=== PATIENT | male | born 1955 | race Caucasian/White ===

== ENCOUNTER → 2020-08-23 12:07 | Outpatient (BNVA) | payer MEDICAID, SELFPAY | PROVIDERS: Family Provider Nurse Practitioner; PCP Nurse Practitioner Family; Visit Provider Nurse Practitioner Family | DX: E78.5 Hyperlipidemia, unspecified (principal); I10 Essential (primary) hypertension; R14.0 Abdominal distension (gaseous); G47.00 Insomnia, unspecified; N52.9 Male erectile dysfunction, unspecified | CPT/HCPCS: 80053; 80061; 85025 ==

== ENCOUNTER 2020-09-01 07:49 | Outpatient (CLI) | payer MEDICAID, SELFPAY ==
--- NOTE | 2020-09-01 08:00 | US_ITS ---
WS: [id number] ULTRASOUND ABDOMEN CLINICAL INFORMATION: R14.0 - Abdominal distension (gaseous) COMPARISON: None. FINDINGS: Liver Size: Enlarged Craniocaudal length: 23.4 cm. Echogenicity: Coarse Surface nodularity: Present Mass (size and location): Numerous large echogenic and heterogeneous hepatic lesions are nonspecific in appearance. Recommend further evaluation with contrast-enhanced CT abdomen pelvis with liver ananth col. Bile ducts Intrahepatic ducts: Normal. Common bile duct diameter: 0.3 cm. Gallbladder Mild gallbladder wall thickening due to hepatic disease Gallstones: None. Gallbladder sludge: Present Gallbladder wall thickening: Mild Pericholecystic fluid: None. Sonographic Figueroa sign: Absent. Pancreas Normal as visualized. Spleen Splenomegaly: Mild Craniocaudal length: 12.7 cm. Right kidney: Right renal cyst inferior pole measuring 2.2 x 1.6 cm Hydronephrosis: None. Size: cm x 5.0 cm x 5.3 cm Left kidney: Normal. Hydronephrosis: None. Size: 11.2 cm x 4.7 cm x 5.1 cm. Abdominal aorta and IVC Visualized portions are normal. Ascites: Mild/moderate US/US abdomen complete* [id number] IMPRESSION: 1. Marked hepatomegaly with multiple heterogeneous and echogenic hepatic lesio ns nonspecific and considerations include benign and malignant lesions. Largest hepatic lesions measure 6 to 7 cm. Recommend further evaluation with contrast- enhanced CT abdomen pelvis with liver protocol. 2. Coarse hepatic echogenicity with perihepatic ascites. 3. Splenomegaly measuring 12.6 x 6.3 CM. 4. No hydronephrosis in either kidney. 5. Mild to moderate abdominal ascites. 6. Mild gallbladder wall thickening consistent with hepatic disease. Small desmond unt of sludge in the gallbladder. Common bile duct not well seen.
== END 2020-09-01 07:50 | disposition home or self-care (01) ==
LOC: US 07:51
PROVIDERS: PCP Nurse Practitioner Family; Visit Provider Nurse Practitioner Family
DX: R14.0 Abdominal distension (gaseous) (principal); R16.0 Hepatomegaly, not elsewhere classified; R16.1 Splenomegaly, not elsewhere classified; K76.9 Liver disease, unspecified; R18.8 Other ascites
CPT/HCPCS: 76700

== ENCOUNTER 2020-09-05 13:38 | Outpatient (CLI) | payer MEDICAID, SELFPAY ==
--- NOTE | 2020-09-05 13:30 | CT_ITS ---
WS: [id number] Exam: CT abdomen pelvis w con* [id number] Date/Time of Exam: 09/05/2020 1:42 PM Reason For Exam: K76.9 - Liver disease, unspecified DLP: 2065.[address] scans at [facility] use at least one of these dose optimization techniques: automat ed exposure control; mA and/or kV adjustment per patient size (includes targeted exams where dose is matched to clinical indication); or iterative reconstruction. 100 mL of nonionic radiographic contras t administered intravenously. Delayed imaging sequences through the liver were obtained at 40 seconds , 80 seconds and 5 minutes. There are several subcentimeter nodules in the visualized lower lung zones. The largest nodules in th e posterior basal segment of the left lower lobe and measures about 5.8 mm at greatest diameter. An 1 1 x 16 cm calcifying contrast-enhancing mass is seen in the right lobe of the liver. There are additi onal contrast-enhancing lesions in the right and left lobes of the liver. The liver is enlarged. Larg e amount of abdominal ascites noted. Mild splenomegaly. No calcified stones in the gallbladder. The s tomach and pancreas are unremarkable. The abdominal aorta is normal in caliber. The adrenal glands ar e unremarkable. No free air. No obvious lymphadenopathy. Small bowel loops are not dilated. There may be some some wall thickening of the cecum and right colon. The kidneys function and drain normally. 1.8 cm right renal cyst is noted. No destructive bone lesions are seen. CT/CT abdomen pelvis w con* [id number] IMPRESSION: 1. 11 x 16 cm calcifying contrasting mass in the right lobe of the liver. There are additional contrast-enhancing lesions in the right and left lobes of the l iver. Metastatic disease secondary to gastrointestinal mucinous adenocarcinoma might be a consideration. Primary hepatic malignancy not excluded but felt to b e much less likely. 2. Wall thickening and irregularity of the cecum and right colon. Underlying co ariela malignancy should be considered. 3. Extensive abdominal and pelvic ascites. Hepatosplenomegaly. 4. Several subcentimeter noncalcified nodules in the bilateral lower lung zones .
[2020-09-05] MEDS: iohexol 300 mg/mL 100 mL Btl IV (14:06)
[2020-09-05] MEDS: iohexol 300 mg/mL 50 mL Btl PO (14:06)
== END 2020-09-05 13:39 | disposition home or self-care (01) ==
PROVIDERS: PCP Nurse Practitioner Family; Visit Provider Nurse Practitioner Family
DX: K76.9 Liver disease, unspecified (principal); R91.8 Other nonspecific abnormal finding of lung field; R16.2 Hepatomegaly with splenomegaly, not elsewhere classified
CPT/HCPCS: 74177; Q9967

== ENCOUNTER → 2020-09-06 13:21 | Outpatient (BNVA) | payer MEDICAID, SELFPAY | PROVIDERS: PCP Nurse Practitioner Family; Visit Provider Nurse Practitioner Family | DX: K76.9 Liver disease, unspecified (principal); J45.909 Unspecified asthma, uncomplicated; R18.8 Other ascites; R16.0 Hepatomegaly, not elsewhere classified; K63.9 Disease of intestine, unspecified; R06.00 Dyspnea, unspecified; R91.8 Other nonspecific abnormal finding of lung field | CPT/HCPCS: 80053; 85025; 86705; 86706; 86709; 86803; 87340 ==

== ENCOUNTER 2020-09-07 07:42 | Emergency (ER) | payer MEDICAID, SELFPAY ==
[2020-09-07 07:48] VITALS: BP 152/75; PULSE 79; RESP 18; TEMP 36.8; O2SAT 99; BMI 26.7
--- NOTE | 2020-09-07 08:08 | ED_ITS ---
HPI - Abdominal Pain General: Chief Complaint: Abdominal Pain Stated Complaint: sent for fluid drainage, abdomen pain Time Seen by Provider: 09/07/20 07:44 History of Present Illness: HPI narrative: 64-year-old male presents to the emergency room with ascites. Has been building for the last [address] done 2 days ago and on chart shows an 11 x 16 cm calcifying contrasting mass in the right lobe of the liver additional contrasting lesions elsewhere in the liver. Radiologist opinion was metastatic disease secondary to gastro intestinal mucosa in this adeno CA or primary hepatic malignancy. Additionally there is wall thickening and irregularity in the cecum of the in the right colon that could also be a source of this. Patient states he is very uncomfortable but is not having a particularly difficult time breathing his sats are normal and his res ting relatively comfortably in bed he is obvious significant distention appears to have some cachexia at his extremities and face with some early temporal wasting. Onset (ago): week(s) Location: Diffuse Quality: fullness Radiation: none Exacerbating factors: movement Relieving factors: rest Associated Symptoms: Reports anorexia, bloating and poor appetite; Denies belching, change in bowel habits, change in stool character, chills, coffee ground emesis, constipation, GI cramping, diarrhea, dyspepsia, dysuria, excessive flatus, fever(s), heartburn, hematochezia, hematuria, hematemesis, fecal incontinence, loose stools, melena, nausea, syncope and vomiting Review of Systems Const: Denies: fever(s) or chills ENMT: Denies: throat pain, ear or mastoid pain, nasal discharge or nasal congestion Card: Denies: syncope Resp: Denies: dyspnea, productive cough or non-productive cough GI: Reports: bloating; Denies: nausea, vomiting, hematemesis, coffee ground emesis, heartburn, diarrhea, constipation, GI cramping, belching, excessive flatus, fecal incontinence, change in bowel habits, change in stool character, hematochezia or melena : Denies: dysuria or hematuria Skin/Breast: Denies: rash or pruritus PFSH ED PFSH: Medical History Allergy-induced asthma Erectile dysfunction Hyperlipidemia Hypertension Surgical History History of total replacement of right shoulder joint (~2008) Family History Other Diabetes Hypertension Stroke Denies family history of Anesthesia complication Bleeding disorder Social History Smoking and tobacco status: current every day smoker cigarettes Packs smoked per day: 0.5 Years cigarettes smoked: 30 Alcohol intake: never Adopted: No Caregiver/support person: Yes Lives independently: Yes Housing: House Marital status: service: No Current occupational status: retired Current occupational exposures/hazards: No Pets and animals: No History of recent travel: No Leisure activites: exercise Sexually active: No Current gender identity: Male Cesla/Hinduism: None Special celsa needs: No Financial difficulty paying for basics: Not Applicable Physical Exam Const: COMMON NORMALS: no acute distress GENERAL APPEARANCE: cooperative and comfortable ORIENTATION/CONSCIOUSNESS: Yes awake, Yes oriented to person, Yes oriented to place and Yes oriented to time HENMT: COMMON NORMALS: normocephalic, atraumatic, hearing grossly normal bilaterally, external ears normal, EAC's normal, TM's normal bilaterally, Normal nasal mucous membranes and turbinates present, moist oral mucous membranes and oropharynx normal HEAD & SCALP: normocephalic and atraumatic NOSE: Normal nasal mucous membranes and turbinates present EXTERNAL EAR: Yes external ears normal EXTERNAL AUDITORY CANAL: EAC's normal TYMPANIC MEMBRANE: TM's normal bilaterally Eye: COMMON NORMALS: Equal, round and reactive pupils present, EOMs intact bilaterally, conjunctivae normal and no scleral icterus CONJUNCTIVA: Yes conjunctivae normal PUPIL: Yes Equal, round and reactive pupils present Neck/C-Spine: COMMON NORMALS: no JVD Lymph: LYMPHATIC: no lymphadenopathy noted and no lymphedema noted Resp: COMMON NORMALS: normal respiratory effort, No retractions, No use of accessory muscles and clear to auscultation bilaterally AUSCULTATION: clear to auscultation bilaterally Cardio: COMMON NORMALS: no JVD, regular rate, regular rhythm and No murmurs present (Cardio) RATE: regular rate RHYTHM: regular rhythm GI: COMMON NORMALS: Soft to palpation INSPECTION: Yes abdominal distension AUSCULTATION: Yes normoactive bowel sounds PALPATION: Yes Soft to palpation, No Tenderness to palpation present (GI), No Guarding due to palpation present (GI), Yes Hepatomegaly present and Yes Ascites present PERCUSSION: dullness to percussion Extremity: COMMON NORMALS: normal to inspection, capillary refill normal, no clubbing, cyanosis or edema, no calf tenderness and no pedal edema Neuro: SENSORIUM/ORIENTATION: Yes oriented to person, Yes oriented to place and Yes oriented to time Skin: COMMON NORMALS: no rashes or lesions noted GENERAL SKIN EXAM: no rashes or lesions noted Course Vital Signs: Vital signs: Vital Signs Temperature 98.3 F 09/07/20 07:48 Pulse Rate 76 09/07/20 09:38 Respiratory Rate 20 H 09/07/20 09:38 Blood Pressure 121/70 09/07/20 09:38 Pulse Oximetry 97 09/07/20 09:38 MDM - Abdominal Pain MDM Narrative: Medical decision making narrative: Patient not in acute distress this time is nonemergent. I talked to radiology unfortunately they are booked up for the day and they really do not have the the potential to do the procedure. We will have case management to work on getting it set up as an outpatient hopefully this week yet. If that is unsuccessful next option will be to make arrangements for Dr. Her or one of the general surgeons to see the patient and perform the paracentesis. Additionally reviewing the patient's CT he needs further work-up. We will have case management assistant get him set up with Dr. Her to further evaluate the CT results. Discharge Plan Discharge Patient Disposition: Home Clinical Impression: Liver mass, Ascites Condition: Stable Prescriptions: New spironolactone 25 mg tablet 25 mg PO DAILY Qty: 30 RF: 0 No Action verapamil 180 mg capsule,ext rel. pellets 24 hr 180 mg PO BID Qty: 60 RF: 5 sildenafil [Viagra] 100 mg tablet 100 mg PO DAILY PRN (Reason: sexual activity) Qty: 10 RF: 5 atorvastatin [Lipitor] 20 mg tablet 20 mg PO DAILY Qty: 30 RF: 5 zolpidem [Ambien] 10 mg tablet 10 mg PO .qhs Qty: 10 RF: 0 albuterol sulfate [Proventil HFA] 90 mcg/actuation HFA aerosol inhaler 2 puff inhalation QID RF: 0 Discharge Orders: Discharge ED (Routine); Ordered 09/07/20 Ordered By: Papa Duong Referrals: South Her MD [Physician] - 09/08/20 9:30 am Patient Instructions: Opioid Safety Activity Restrictions/Additional Instructions: Follow-up with Dr. Her tomorrow morning at his office at 930. Coding Level of Care Code ED Personalized Living Manager Nurse for [facility] Fwd Exam Comprehensive
--- NOTE | 2020-09-07 09:07 | DCPLANNER ---
automobile service station manager was asked to schedule a follow up appointment for patient with Dr. Her. automobile service station manager called the office of Dr. Her, spoke with Solange, a follow up appointment was scheduled for August at 9:[address] Her. automobile service station manager informed ER physician and patient of the scheduled appointment.
[2020-09-07 09:28] VITALS: BP 132/70; PULSE 74; RESP 20; O2SAT 99
[2020-09-07 09:38] VITALS: BP 121/70; PULSE 76; RESP 20; O2SAT 97
--- NOTE | 2020-10-07 11:09 | DCPLANNER ---
Patient had follow up appointment scheduled for 09.07.20 with - patient did attend appointment.
== END 2020-09-07 09:40 | disposition home or self-care (01) ==
PROVIDERS: Emergency Provider Family Medicine; PCP Nurse Practitioner Family
DX: R18.8 Other ascites (principal); R16.0 Hepatomegaly, not elsewhere classified; E78.5 Hyperlipidemia, unspecified; I10 Essential (primary) hypertension; F17.210 Nicotine dependence, cigarettes, uncomplicated
CPT/HCPCS: 99281

== ENCOUNTER → 2020-09-08 10:21 | Outpatient (BNVA) | payer MEDICAID, SELFPAY | PROVIDERS: PCP Nurse Practitioner Family; Visit Provider Internal Medicine | DX: K63.89 Other specified diseases of intestine (principal); Z01.812 Encounter for preprocedural laboratory examination; R18.0 Malignant ascites | CPT/HCPCS: 87635 ==

== ENCOUNTER → 2020-09-09 08:40 | Day surgery (SDC) | payer MEDICAID, SELFPAY ==
[2020-09-09 10:14] VITALS: BP 116/63; PULSE 71; RESP 18; TEMP 36.3; O2SAT 99
[2020-09-09 11:24] VITALS: BMI 27.1
[2020-09-09 11:53] LABS: Body Fluid Polynuclear #Cells 0.012; Body Fluid WBC 123 /uL; Monocytes # Body Fluid 0.111; RBC, Body Fluid 0 10^3/uL
[2020-09-09 12:01] LABS: Apprearance, Body Fluid CLEAR; Color, Body Fluid PALE YELLOW; PATH Referral YES
[2020-09-09 12:25] LABS: Total Protein Body Fluid 2.5 g/dL
[2020-09-09 12:56] VITALS: BP 124/64; PULSE 70; RESP 16; TEMP 36.6; O2SAT 97
== END ==
PROVIDERS: PCP Nurse Practitioner Family; Visit Provider Internal Medicine
DX: R18.8 Other ascites (principal)
CPT/HCPCS: 49082; 80500; 82945; 84157; 87070; 87075; 87205; 88112; 88305; 89050

== ENCOUNTER 2020-09-12 08:42 | Day surgery (SDC) | payer SELFPAY ==
[2020-09-09 11:12] VITALS: BMI 27.1
--- NOTE | 2020-09-09 12:41 | PM.ACPR ---
Acute Procedures Paracentesis: Time out performed: Yes Indication: Ascites Procedure: therapeutic paracentesis Location: RLQ Local anesthetic used: lidocaine 1% Amount of anesthesia used (ml): 10 Bedside ultrasound used: no Preparation: sterile prep and drape and 11 blade used to make ramesh in skin Amount of fluid obtained (ml): 6,500 Fluid: clear and sent to lab for analysis Post procedure exam: awake, alert, normal BP, normal HR and normal SpO2 Patient tolerated procedure: well and no complications
--- NOTE | 2020-09-12 08:57 | ANES.PREANE2 ---
Pre-Anesthetic Assessment Pre-Anesthetic Assessment: Height/Weight: Height 1.7 m Weight 78.471 kg Proposed Procedure: Operation Date: 09/12/20 10:15 Proposed Procedures p Colonoscopy 69886 K63.89(Not Applicable) - South Her MD Was Beta Moncho taken within 24 hours: N/A Was Clonidine taken within 24 hours: N/A Social: Social History: Alcohol and Tobacco Exam: Pre-Anes Outpt Exam: alert, oriented x 3 and regular rate & rhythm Airway: Submandibular: WNL Cervical ROM: WNL MP: 2 Dentition: False Pulmonary: Pulmonary: COPD and MORENO CV/HEM: CV/HEM: HTN Hepatic: Hepatic: Cirrohsis Anesthetic Plan: ASA status: 3 Anesthesia: MAC Risk of > 500 ml blood loss (7ml/kg in children): No PFSH Anesthesia PFSH: Medical History Allergy-induced asthma Erectile dysfunction Hyperlipidemia Hypertension Surgical History History of total replacement of right shoulder joint (~2008) Family History Other Diabetes Hypertension Stroke Denies family history of Anesthesia complication Bleeding disorder Social History Smoking and tobacco status: current every day smoker cigarettes Packs smoked per day: 0.5 Years cigarettes smoked: 30 Alcohol intake: never Adopted: No Caregiver/support person: Yes Lives independently: Yes Housing: House Marital status: service: No Current occupational status: retired Current occupational exposures/hazards: No Pets and animals: No History of recent travel: No Leisure activites: exercise Sexually active: No Current gender identity: Male Celsa/Latter Day: None Special celsa needs: No Financial difficulty paying for basics: Not Applicable Data Anesthesia Cardiac Studies: No Data to Display
--- NOTE | 2020-09-12 09:06 | W.PM.OPSFHP ---
Same Day Surgery H&P Indication for Procedure/HPI DATE OF PROCEDURE: September 12, 2020 CHIEF COMPLAINT/INDICATIONFOR SURGICAL PROCEDURE: Malignant ascites, colon mass. PREOP DIAGNOSIS: d PLANNED PROCEDRUE: Operation Date: 09/12/20 10:15 Proposed Procedures p Colonoscopy 11415 K63.89(Not Applicable) - South Her MD Medications/Allergies* Home Medications Medication Instructions Recorded Confirmed Type albuterol sulfate [Proventil HFA] 2 puff INHALATION QID 09/09/20 09/09/20 History Allergies/Adverse Reactions Allergy/AdvReac Type Severity Reaction Status Date / Time No Known Allergies Allergy Verified 09/08/20 09:35 Pertinent History/Comorbid Conditions* Medical History (Updated 09/08/20 @ 10:15 by South Her MD) Allergy-induced asthma Erectile dysfunction Hyperlipidemia Hypertension Surgical History (Updated 10/28/19 @ 09:26 by DAMON Cerda) History of total replacement of right shoulder joint (~2008) Family History (Updated 10/28/19 @ 08:35 by Laisha Mitchell RN) Diabetes Hypertension Stroke Denies family history of Anesthesia complication Bleeding disorder Social History Smoking and tobacco status: current every day smoker cigarettes Packs smoked per day: 0.5 Years cigarettes smoked: 30 Alcohol intake: never Adopted: No Caregiver/support person: Yes Lives independently: Yes Housing: House Marital status: service: No Current occupational status: retired Current occupational exposures/hazards: No Pets and animals: No History of recent travel: No Leisure activites: exercise Sexually active: No Current gender identity: Male Celsa/Anabaptism: None Special celsa needs: No Financial difficulty paying for basics: Not Applicable Pertinent Exam Findings alert, oriented x 3, clear to auscultation bilaterally, regular rate & rhythm and procedure specific exam findings Recommendations Surgery/Procedure today Coding Level of Care Code Acute Horticultural Specialty Grower for [facility]
[2020-09-12 09:22] VITALS: BP 144/76; PULSE 85; RESP 18; TEMP 36.4; O2SAT 99
[2020-09-12] MEDS: sodium chloride 0.9% 1,000 ML 30 ML IV (09:44)
[2020-09-12 11:34] VITALS: BP 107/71; PULSE 89; RESP 16; TEMP 36.4; O2SAT 95
[2020-09-12 11:42] VITALS: BP 107/72; PULSE 90; RESP 16; O2SAT 94
[2020-09-12 14:40] LABS: Basophils # 0.1 10^3/uL (0.0-0.1); Basophils % 0.8 %; Eosinophils # 0.1 10^3/uL (0.0-0.8); Eosinophils % 1.3 %; Hematocrit 34.9 % (42.0-52.0); Hemoglobin 11.3 g/dL (11.7-16.6); Lymphocytes # 1.3 10^3/uL (0.8-4.8); Lymphocytes % 16.4 %; Mean Corpuscular HGB Conc 32.4 g/dL (30.0-36.0); Mean Corpuscular Hemoglobin 28.3 pg (28.0-34.0); Mean Corpuscular Volume 87.5 fL (80-94); Mean Platelet Volume 10.4 fL (7.4-10.4); Monocytes # 0.6 10^3/uL (0.2-0.9); Monocytes % 7.2 %; Neutrophils # 5.89 10^3/uL (1.8-7.7); Neutrophils % 73.9 %; Nucleated Red Blood Cells % 0 %; Platelet Count 284 10^3/cmm (130-400); Red Blood Count 3.99 10^6/uL (4.1-5.3); Red Cell Distribution Width 16.8 % (12.1-15.1)
--- NOTE | 2020-09-12 14:49 | ANE.PACU2 ---
Inpatient post-anesthesia follow up: Airway intact: Yes Vital signs: Temperature 97.5 F Pulse Rate 90 Respiratory Rate 16 Blood Pressure 107/72 Pulse Oximetry 94 Oxygen Delivery Me thod Room Air Oxygen Flow Rate Fraction of Inspir ed Oxygen Hydration adequate: Yes Nausea and vomiting: No Pain level: 1 Mental status: Baseline
[2020-09-12 15:19] LABS: Carcinoembryonic Antigen 14.3 ng/mL (0.0-4.7)
[2020-09-12 15:30] LABS: Alanine Aminotransferase 13 U/L (0-41); Albumin Level 2.9 g/dL (3.5-5.2); Alkaline Phosphatase 270 IU/L (40-130); Anion Gap 15.3 (5-19); Aspartate Amino Transferase 22 U/L (0-40); Blood Urea Nitrogen 10 mg/dL (8-23); Carbon Dioxide 23 mmol/L (22-29); Chloride 97 mmol/L (98-107); Globulin 3.5 g/dL (1.3-4.6); Glomerular Filtration Rate 136.1 mL/min (90-130); Glucose 75 mg/dL (65-115); Osmolality Calculated 270 mOsm/kg (285-295); Potassium 4.3 mmol/L (3.5-5.1); Sodium 131 mmol/L (136-145); Total Bilirubin 0.6 mg/dL (0.15-1.2); Total Protein 6.4 g/dL (6.6-8.7)
== END 2020-09-12 12:47 | disposition home or self-care (01) ==
PROVIDERS: PCP Nurse Practitioner Family; Visit Provider Internal Medicine
PROC: 0DJD8ZZ Inspection of Lower Intestinal Tract, Via Natural or Artificial Opening Endoscopic (ICD-10-PCS; CPT 45378; principal; 2020-09-12 10:15)
DX: C18.9 Malignant neoplasm of colon, unspecified (principal); K63.89 Other specified diseases of intestine; E78.5 Hyperlipidemia, unspecified; I10 Essential (primary) hypertension; F17.210 Nicotine dependence, cigarettes, uncomplicated; J44.9 Chronic obstructive pulmonary disease, unspecified
CPT/HCPCS: 45380; 45381; 80053; 82378; 85025; 88305; 96360; 96361; J2704; J7030

== ENCOUNTER 2020-09-13 10:21 | Outpatient (CLI) | payer MEDICAID, SELFPAY ==
--- NOTE | 2020-09-13 19:14 | ONC CON_ITS ---
Dr. Broderick New Patient Note Patient: Ezequiel Rogers Unit #: [id number]: [id number] Dicatated By: Sekou Broderick M.D.Date of Visit: September 13, 2020 Onc MED New Patient/Consult Referring Physician: Dr. JETT DUNBAR M.D. Chief Complaint: Colon cancer. History of Present Illness: This is a 64-year-old man with invasive moderately differentiated adenocarcinoma of the colon, stage IVC with CT evidence of metastatic involvement liver and ascites. In August 2020 he presented to his primary care provider with abdominal pain and swelling. Abdominal ultrasound on 09/01/2020 showed hepatomegaly with large echogenic and heterogeneous hepatic lesions, splenomegaly, and mild to moderate abdominal ascites. Further evaluation with CT abdomen/pelvis on 09/05/2020 showed several subcentimeter nodules in the visualized lower lung zones. An 11 x 16 cm calcifying contrast-enhancing mass was seen in the right lobe of the liver. There were additional contrast-enhancing lesions in the right and left lobes of the liver. There was mild splenomegaly. There was a large amount of abdominal ascites. There was wall thickening and irregularity of the cecum and right colon suspicious for underlying colon malignancy. On 09/07/2020 he was seen in the emergency room with increased abdominal swelling. He underwent paracentesis. The peritoneal fluid cytology was negative. He was seen by Dr. Her and he underwent colonoscopy on 09/12/2020. It showed a circumferential malignant appearing and near obstructing mass in the colon at 40 cm. The preliminary indication from the biopsy is moderately differentiated invasive adenocarcinoma. Additional studies are pending. He is seen for further management of the colon cancer. He has had a significant decline in his activity tolerance, but he is still able to do light work. His ECOG score is 1. He has appetite, but he has early satiety. He says his weight has dropped 80 lbs over the past year. He does not have fever or night sweats. He does have some shortness of breath associated with the abdominal distention. He does not complain of cough and he has not been having chest pain. He has had no nausea/vomiting. He continues to have pain in the lower abdominal area and he has had some ongoing problems with constipation. He has not been aware of any blood in the stool or black stools. He has no complaints. He has no significant joint or bone pain. He does not complain of headache or dizziness, and he has no focal neurologic symptoms. He is having difficulty sleeping and he also is having some anxiety and depression. Past Medical History: His medical history includes asthma, erectile dysfunction, history of cluster headaches, hyperlipidemia, and hypertension. Past Surgical History: He underwent colonoscopy on 09/12/2020. His only other surgery was a right shoulder joint replacement. Medications: Albuterol Sulfate 2 Puff(s) (of 108 (90 base) mcg/act) Aerosol Powder, Breath Activated Inhalation four times a day, Aldactone 1 (25 mg) Tablet Oral daily, Ambien 1 (10 mg) Tablet Oral at bedtime, Atorvastatin Calcium 1 (20 mg) Tablet Oral daily, Verapamil HCl ER 1 (180 mg) Capsule SR 24 HR Oral daily, Viagra 1 (100 mg) Tablet Oral daily PRN Allergies: No Known Allergies. Social History: Mr. Rogers is and he is retired. He has a history of smoking for 30 years, the range of 1/2-3/4 pack of cigarettes daily. He does not drink alcohol. Family History: Father age 74, reportedly due to complications of agent orange exposure. His mother, 2 brothers, and a sister all with heart disease. Review Of Symptoms: Constitutional - He has had a significant decline in his activity tolerance, but he is able to do light work. He has appetite, but he has early satiety. He says his weight has dropped 80 lbs over the past year. He does not have fever or night sweats. ECOG score is 1, Eyes - No change in vision, ENMT - No hearing loss or tinnitus. No sinus congestion/drainage. No mouth sores. No sore throat or difficulty swallowing, Hematologic/Lymphatic - No abnormal bruising or bleeding, Respiratory - He has some shortness of breath associated with abdominal distention. No cough. No pleuritic pain or hemoptysis, Cardiovascular - No angina pain. No palpitations, Gastrointestinal - No nausea or vomiting. No heartburn or acid reflux. He pain in the lower abdominal area and he has abdominal swelling. He also has had some constipation. He has not been aware of any blood in the stool or black stools, Genitourinary (M) - No dysuria or hematuria. No urinary frequency. No urgency or incontinence, Musculoskeletal - No joint or bone pain, Integumentary - No skin rash or other skin changes, Neurologic - No headache or dizziness. No numbness or tingling. No other focal neurologic symptoms, Psychiatric - He has had some anxiety and some depression. Lately has had difficulty sleeping. Vital Signs: Performed on September 13, 2020 11:05: 0, 3, 25.15, 1.84 sq.m, 67 in, 99 %, 71 /min, 18 /min, 124/76 mm(hg), 98.8 F, and 160.6 lbs (HIGH). Physical Examination: Constitutional - He appears somewhat weak generally and he has evidence of muscle wasting, Eyes - Sclerae nonicteric. Conjunctivae clear, ENMT - No lesions noted in the oral cavity, Neck - No mass or thyromegaly, Hematologic/Lymphatic - No cervical, clavicular, or axillary adenopathy, Respiratory - Lungs sound clear, Cardiovascular - Heart rhythm is regular. There is no murmur, gallop, or rub noted, Abdomen - Abdomen is distended with ascites. Liver is not overtly enlarged. Spleen is not palpable. There is no abdominal mass noted. There is no inguinal adenopathy, Back/Spine - No spine or CVA tenderness noted, Extremities - No edema. Pedal pulses are palpable bilaterally, Integumentary - No rashes. No suspicious skin lesions noted, Neurologic - No focal neurologic deficits noted. Problem List: 1. Invasive moderately differentiated adenocarcinoma of the colon, stage IVC with CT evidence of metastatic involvement in the liver and ascites. 2. Hypertension. 3. Hyperlipidemia. 4. Asthma. 5. Erectile dysfunction. 6. History of cluster headaches. Problems Addressed with this Encounter and Plan: 1. Patient with invasive moderately differentiated adenocarcinoma of the colon, stage IVC with CT evidence of metastatic involvement in the liver and ascites. The CT also showed small pulmonary nodules which could be metastatic. The CT findings and images reviewed with the patient, and we discussed the colonoscopy findings and pathology results. He is aware that he has a primary tumor in the colon and that it has metastasized to the liver. He is well aware that his disease is incurable. At this point he is uncertain if he wants to pursue any further treatment. We discussed the fact that with current chemotherapy regimens average survivals with metastatic colon cancer are in the range of 2 to 3 years with response rates in the range of 50%. I reviewed anticipated side effects with a typical FOLFOX chemotherapy regimen which may include nausea/vomiting, alopecia, fatigue, mucositis, diarrhea, low blood counts, and neuropathy, among others. We discussed the fact that the chemotherapy regimen would also include a growth inhibitor, either bevacizumab or possibly panitumumab. Given that information, he may opt for a trial of therapy, but he does want to think about it before making a definite decision. If he does opt for treatment, he will need to undergo placement of a Port-A-Cath venous access device, and he will need to complete staging with a chest CT. In addition, I will want to request additional pathologic studies including MSI testing and a next generation sequencing study. 2. He is having insomnia. He had no benefit previously with Ambien. As such, he will be given a prescription for trazodone to take 50 mg at bedtime. Signed By: Sekou Broderick M.D. <<Signature on File>>
== END 2020-09-13 10:22 | disposition home or self-care (01) ==
LOC: ONCMED 10:24
PROVIDERS: PCP Nurse Practitioner Family; Visit Provider Internal Medicine Medical Oncology
DX: C18.9 Malignant neoplasm of colon, unspecified (principal); C78.7 Secondary malignant neoplasm of liver and intrahepatic bile duct; C79.9 Secondary malignant neoplasm of unspecified site; R18.0 Malignant ascites; I10 Essential (primary) hypertension; E78.5 Hyperlipidemia, unspecified; J45.909 Unspecified asthma, uncomplicated; N52.9 Male erectile dysfunction, unspecified; G44.029 Chronic cluster headache, not intractable; Z79.899 Other long term (current) drug therapy
CPT/HCPCS: 99205

== ENCOUNTER → 2020-09-26 09:35 | Outpatient (BNVA) | payer MEDICAID, SELFPAY | PROVIDERS: PCP Nurse Practitioner Family; Visit Provider Surgery | DX: C18.9 Malignant neoplasm of colon, unspecified (principal); C78.7 Secondary malignant neoplasm of liver and intrahepatic bile duct; Z20.822 Contact with and (suspected) exposure to COVID-19 | CPT/HCPCS: 87635 ==

== ENCOUNTER 2020-09-28 09:32 | Day surgery (SDC) | payer MEDICAID, SELFPAY ==
[2020-09-27 14:12] VITALS: BMI 27.2
--- NOTE | 2020-09-28 | SCC_ITS ---
Procedure Done: 1. Placement of PowerPort in the left subclavian vein 2. Fluoroscopic guidance and interpretation for placement of catheter 19.1 seconds of fluoroscopic guidance, for a cumulative dose of 1.44 mGy, was provided to Dr. Mcnamara by the radiology department. C-arm images of the chest were saved for the patient's permanent record. [facility]
[2020-09-28 09:48] VITALS: BP 151/72; PULSE 77; RESP 18; TEMP 36.8; O2SAT 100
--- NOTE | 2020-09-28 10:47 | ANES.PREANE2 ---
Pre-Anesthetic Assessment Pre-Anesthetic Assessment: Height/Weight: Height 1.7 m Weight 78.925 kg Temp Pulse Resp BP Pulse Ox 98.3 F 77 18 151/72 100 09/28/20 09:48 09/28/20 09:48 09/28/20 09:48 09/28/20 09:48 09/28/20 09:48 Preop Diagnosis: metastatic cancer Proposed Procedure: Operation Date: 09/28/20 11:35 Proposed Procedures p Portacath Placement 26734 C18.9(Not Applicable) - Mau Mcnamara MD Was Beta Moncho taken within 24 hours: N/A Was Clonidine taken within 24 hours: N/A Social: Social History: Tobacco and No alcohol Exam: Pre-Anes Outpt Exam: alert, oriented x 3 and regular rate & rhythm Additional Exam Findings (including area of procedure): rhonchi Airway: Submandibular: WNL Cervical ROM: WNL MP: 2 Dentition: False Pulmonary: Pulmonary: Asthma and COPD CV/HEM: CV/HEM: HTN Anesthetic Plan: ASA status: 3 Anesthesia: MAC Risk of > 500 ml blood loss (7ml/kg in children): No PFSH Anesthesia PFSH: Medical History Allergy-induced asthma Erectile dysfunction Hyperlipidemia Hypertension Metastatic colon cancer to liver Surgical History History of colonoscopy with polypectomy 09/2020 History of total replacement of right shoulder joint (~2008) Family History Other Diabetes Hypertension Stroke Denies family history of Anesthesia complication Bleeding disorder Social History Smoking and tobacco status: current every day smoker cigarettes Packs smoked per day: 0.5 Years cigarettes smoked: 30 Alcohol intake: never Adopted: No Caregiver/support person: Yes Lives independently: Yes Housing: House Marital status: service: No Current occupational status: retired Current occupational exposures/hazards: No Pets and animals: No History of recent travel: No Leisure activites: exercise Sexually active: No Current gender identity: Male Celsa/Tenriism: None Special celsa needs: No Financial difficulty paying for basics: Not Applicable Data Anesthesia Cardiac Studies: No Data to Display
--- NOTE | 2020-09-28 11:30 | W.PM.OPSUD ---
Surgery/Procedure H&P Update DATE OF PROCEDURE: September 28, 2020 DATE H&P PERFORMED: 09/26/20 H&P UPDATE INFORMATION: I have reviewed H&P completed within last 30 days, I have examined patient prior to procedure and No changes to prior documentation PREOP DIAGNOSIS: metastatic cancer PLANNED PROCEDURE: Operation Date: 09/28/20 11:35 Proposed Procedures p Portacath Placement 84645 C18.9(Not Applicable) - Mau Mcnamara MD
--- NOTE | 2020-09-28 11:45 | SC_ITS ---
WS: [id number] C-arm fluoroscopy for Port-A-Cath placement, 09/28/2020 Clinical Data: port a cath Comparison: None. Findings: The left Port-A-Cath has been inserted into the left subclavian vein and ends in the superior vena ca va. SC/C-arm FL for CVA [id number] Impression: Insertion of left Port-A-Cath into the superior vena cava.
[2020-09-28] MEDS: heparin, porcine 1,000 unit/mL INJ 10 mL 6000 UNIT INJECTION (12:00)
[2020-09-28] MEDS: lidocaine 1% INJ 20 mL 10 ML INJECTION (12:02)
[2020-09-28 12:18] VITALS: BP 102/60; PULSE 80; RESP 16; TEMP 36.7; O2SAT 98
--- NOTE | 2020-09-28 12:19 | PM.OP ---
Operative Report Date of procedure: September 28, 2020 Pre-op Diagnosis: metastatic cancer Post-op diagnosis: same Procedure Done: 1. Placement of PowerPort in the left subclavian vein 2. Fluoroscopic guidance and interpretation for placement of catheter Pathology: none sent Surgeon: Mau Mcnamara Anesthesia: MAC Condition: stable Disposition: PACU Procedure: The patient was taken to the Operating Room and the chest and neck bilaterally were prepped and draped in a sterile manner after the antibiotic had been administered and shoulder rolls had been placed. A total of 10 mL of 1% lidocaine with 0.5% Marcaine was infiltrated under the clavicle on the left side at the site of the planned entry into the subclavian vein. An introducer needle was then used to access the subclavian vein under the clavicle and after withdrawing blood syringe was removed and a guidewire passed under fluoroscopy into the superior vena cava. The site of the planned port was then marked on the chest and a 15 blade was used to make a 3 cm skin incision this was extended into the subcutaneous tissue using electrocautery and a subcutaneous pocket over the pectoralis fascia was created 2-0 Vicryl suture was used to suture the port to the pectoral fascia in the pocket on 3 sides. The catheter, after having been flushed with hep saline, was attached to the tunneler and a tunnel created between the port site and the subclavian vein entry site. Under fluoroscopy the dilator sheath was passed over the guidewire into the proximal superior vena cava. The inner dilator was removed and the sheath left behind and~ the catheter was introduced through the peel-away sheath with the tip in the superior vena cava. The peel-away sheath was removed. The proximal end of the catheter was cut to the right size and was attached to the port. Using a Sam needle the port was accessed, it withdrew blood easily and flushed easily. A final 5cc of heparin was used to flush the PowerPort. The subcutaneous tissue was approximated using interrupted 3-0 Vicryl sutures and the skin at the introducer site and the port site was closed using subcuticular running 4-0 Monocryl sutures. Surgical glue was applied and the patient was stable throughout the procedure. Fluoroscopic guidance and interpretation was performed for introduction of the guidewire in the left subclavian vein, passage of dilator and placement of catheter tip in the distal superior vena cava.
[2020-09-28 12:20] VITALS: BP 98/61; PULSE 78; RESP 16; O2SAT 96
[2020-09-28 12:25] VITALS: BP 107/62; PULSE 80; RESP 14; O2SAT 96
[2020-09-28 12:30] VITALS: BP 120/69; PULSE 76; RESP 14; TEMP 36.6; O2SAT 96
[2020-09-28] MEDS: HYDROcodone-acetaminophen 5-325 mg Tablet 1 TAB PO (13:05)
--- NOTE | 2020-09-28 13:37 | ANE.PACU2 ---
Inpatient post-anesthesia follow up: Airway intact: Yes Vital signs: Temperature 97.8 F Pulse Rate 76 Respiratory Rate 14 Blood Pressure 120/69 Pulse Oximetry 96 Oxygen Delivery Me thod Room Air Oxygen Flow Rate Fraction of Inspir ed Oxygen Hydration adequate: Yes Nausea and vomiting: No Pain level: 2 Mental status: Baseline
== END 2020-09-28 13:07 | disposition home or self-care (01) ==
PROVIDERS: PCP Nurse Practitioner Family; Visit Provider Surgery
PROC: (CPT 36561; principal; 2020-09-28 11:35)
DX: C18.9 Malignant neoplasm of colon, unspecified (principal); J44.9 Chronic obstructive pulmonary disease, unspecified; I10 Essential (primary) hypertension; E78.5 Hyperlipidemia, unspecified; F17.210 Nicotine dependence, cigarettes, uncomplicated
CPT/HCPCS: 36561; 76000; 77001; C1788; J0690; J1644; J2704; J3010; J3490

== ENCOUNTER 2020-09-30 08:51 | Outpatient (CLI) | payer MEDICAID, SELFPAY ==
--- NOTE | 2020-09-30 09:11 | CT_ITS ---
WS: [id number] CT scan of the chest with IV contrast, additional two-dimensional coronal and sagittal reconstruction was performed. 09/30/2020 Clinical Data: COLON CANCER, COMPLETE STAGING Comparison: CT abdomen and pelvis, 09/05/2020 DLP: 716.18 mGy-cm All CT scans at [facility] use at least one of these dose optimization techniques: automat ed exposure control; mA and/or kV adjustment per patient size (includes targeted exams where dose is matched to clinical indication); or iterative reconstruction. Findings: There is a large right upper lobe mass measuring 5.5 x 8.0 cm which has the appearance of a primary c ancer. The lower lobes demonstrate several small nodules which are probably metastatic lesions. The h eart size is normal with no pericardial effusion. There is coronary artery calcification. No effusion s are seen. The trachea bifurcates normally into the bronchi. The pulmonary arterial system and thora cic aorta demonstrate no abnormalities or dilatations. No pneumonia or pneumothorax is present. There is no axillary adenopathy. There is subcarinal adenopathy. There is minimal subcutaneous air adjace nt to the left infusion port . The upper abdomen demonstrates a large masses occupying the right and left lobes of the liver. On the right there is abundant calcification in a 10.4 cm lesion. There is a small amount of calcification in the left lobe lesion which measures 8.2 cm. There is a large amount of ascites throughout the abdo men. No bony metastatic lesions are seen. CT/CT chest w con* 39700 Impression: 1. Large right upper lobe mass which has appearance of cancer lung. 2. Multiple small nodules throughout the lungs consistent with metastatic disea se. 3. Large masses occupy most of the liver which may represent metastatic disease from the primary lung cancer. 4. Large amount of ascites throughout the abdomen.
== END 2020-09-30 08:52 | disposition home or self-care (01) ==
PROVIDERS: PCP Nurse Practitioner Family; Visit Provider Internal Medicine Medical Oncology
DX: C18.2 Malignant neoplasm of ascending colon (principal); C78.7 Secondary malignant neoplasm of liver and intrahepatic bile duct; R18.8 Other ascites
CPT/HCPCS: 71260; Q9967

== ENCOUNTER 2020-11-08 05:47 | Outpatient (RCR) | payer MEDICAID, SELFPAY ==
[2020-10-11 09:00] LABS: Basophils % 0.4 %; Eosinophils # 0.1 10^3/uL (0.0-0.8); Eosinophils % 1.6 %; Hematocrit 35.4 % (42.0-52.0); Hemoglobin 11.2 g/dL (11.7-16.6); Lymphocytes % 14.8 %; Mean Corpuscular HGB Conc 31.6 g/dL (30.0-36.0); Mean Corpuscular Hemoglobin 28.5 pg (28.0-34.0); Mean Corpuscular Volume 90.1 fL (80-94); Mean Platelet Volume 9.9 fL (7.4-10.4); Monocytes # 0.6 10^3/uL (0.2-0.9); Monocytes % 8.1 %; Neutrophils # 5.05 10^3/uL (1.8-7.7); Neutrophils % 74.8 %; Nucleated Red Blood Cells % 0 %; Platelet Count 252 10^3/cmm (130-400); Red Blood Count 3.93 10^6/uL (4.1-5.3); Red Cell Distribution Width 16.7 % (12.1-15.1); White Blood Count 6.8 10^3/uL (4.0-10.0)
[2020-10-11 09:24] LABS: Alanine Aminotransferase 8 U/L (0-41); Albumin Level 2.7 g/dL (3.5-5.2); Alkaline Phosphatase 276 IU/L (40-130); Anion Gap 13.8 (5-19); Aspartate Amino Transferase 18 U/L (0-40); Blood Urea Nitrogen 17 mg/dL (8-23); Carbon Dioxide 26 mmol/L (22-29); Chloride 100 mmol/L (98-107); Globulin 3.5 g/dL (1.3-4.6); Glomerular Filtration Rate 113.5 mL/min (90-130); Glucose 89 mg/dL (65-115); Osmolality Calculated 283 mOsm/kg (285-295); Potassium 3.8 mmol/L (3.5-5.1); Sodium 136 mmol/L (136-145); Total Bilirubin 0.6 mg/dL (0.15-1.2); Total Protein 6.2 g/dL (6.6-8.7)
[2020-10-11] MEDS: palonosetron 0.25 mg/5 mL SDV IV (10:04)
[2020-10-11] MEDS: dextrose 5% 250 ML 75 ML IV (10:04)
[2020-10-18 12:53] LABS: Basophils % 0.6 %; Eosinophils # 0.1 10^3/uL (0.0-0.8); Eosinophils % 1.7 %; Hematocrit 36.3 % (42.0-52.0); Hemoglobin 11.7 g/dL (11.7-16.6); Lymphocytes # 1.2 10^3/uL (0.8-4.8); Lymphocytes % 16.9 %; Mean Corpuscular HGB Conc 32.2 g/dL (30.0-36.0); Mean Corpuscular Hemoglobin 28.3 pg (28.0-34.0); Mean Corpuscular Volume 87.9 fL (80-94); Mean Platelet Volume 10.3 fL (7.4-10.4); Monocytes # 0.5 10^3/uL (0.2-0.9); Monocytes % 7.5 %; Neutrophils # 5.11 10^3/uL (1.8-7.7); Neutrophils % 72.6 %; Nucleated Red Blood Cells % 0 %; Platelet Count 176 10^3/cmm (130-400); Red Blood Count 4.13 10^6/uL (4.1-5.3); Red Cell Distribution Width 15.9 % (12.1-15.1)
[2020-10-18 13:13] LABS: Alanine Aminotransferase 9 U/L (0-41); Alkaline Phosphatase 302 IU/L (40-130); Anion Gap 12.6 (5-19); Aspartate Amino Transferase 19 U/L (0-40); Blood Urea Nitrogen 12 mg/dL (8-23); Calcium 8.1 mg/dL (8.5-10.5); Carbon Dioxide 27 mmol/L (22-29); Chloride 97 mmol/L (98-107); Glomerular Filtration Rate 113.5 mL/min (90-130); Glucose 95 mg/dL (65-115); Osmolality Calculated 276 mOsm/kg (285-295); Potassium 3.6 mmol/L (3.5-5.1); Sodium 133 mmol/L (136-145); Total Bilirubin 0.9 mg/dL (0.15-1.2)
[2020-10-25 09:27] LABS: Basophils % 0.3 %; Eosinophils # 0.1 10^3/uL (0.0-0.8); Eosinophils % 1.5 %; Hematocrit 35.9 % (42.0-52.0); Hemoglobin 11.6 g/dL (11.7-16.6); Lymphocytes # 0.9 10^3/uL (0.8-4.8); Lymphocytes % 11.4 %; Mean Corpuscular HGB Conc 32.3 g/dL (30.0-36.0); Mean Corpuscular Hemoglobin 28.6 pg (28.0-34.0); Mean Corpuscular Volume 88.4 fL (80-94); Mean Platelet Volume 10.8 fL (7.4-10.4); Monocytes # 0.6 10^3/uL (0.2-0.9); Monocytes % 7.8 %; Neutrophils # 5.85 10^3/uL (1.8-7.7); Neutrophils % 78.6 %; Nucleated Red Blood Cells % 0 %; Platelet Count 165 10^3/cmm (130-400); Red Blood Count 4.06 10^6/uL (4.1-5.3); Red Cell Distribution Width 16.6 % (12.1-15.1); White Blood Count 7.4 10^3/uL (4.0-10.0)
[2020-10-25 10:07] LABS: Alanine Aminotransferase 7 U/L (0-41); Albumin Level 3.1 g/dL (3.5-5.2); Alkaline Phosphatase 241 IU/L (40-130); Anion Gap 14.4 (5-19); Aspartate Amino Transferase 18 U/L (0-40); Blood Urea Nitrogen 11 mg/dL (8-23); Calcium 8.3 mg/dL (8.5-10.5); Carbon Dioxide 25 mmol/L (22-29); Chloride 96 mmol/L (98-107); Glomerular Filtration Rate 97.3 mL/min (90-130); Glucose 106 mg/dL (65-115); Osmolality Calculated 274 mOsm/kg (285-295); Potassium 3.4 mmol/L (3.5-5.1); Sodium 132 mmol/L (136-145); Thyroid Stimulating Hormone 6.99 uIU/mL (0.27-4.20); Total Bilirubin 0.7 mg/dL (0.15-1.2); Total Protein 6.1 g/dL (6.6-8.7)
[2020-10-25] MEDS: sodium chloride 0.9% 1,000 ML 999 ML IV (11:25)
[2020-10-25] MEDS: famotidine 20 mg/2 mL INJ IVP (11:25)
[2020-10-25] MEDS: ondansetron 2 mg/ML SDV 2 mL 8 MG IVP (11:27)
[2020-10-25] MEDS: fluconazole premix 200 MG/100 ML PREMIX 100 MG IV (11:30)
[2020-10-25] MEDS: acyclovir 800 MG in sodium chloride 0.9% (100 ml) 100 ML 120 MG IV (12:51)
[2020-10-28] MEDS: sodium chloride 0.9% 1,000 ML 999 ML IV (08:50)
[2020-10-28 09:31] LABS: Basophils % 0.2 %; Eosinophils % 0.9 %; Hematocrit 34.6 % (42.0-52.0); Lymphocytes # 0.8 10^3/uL (0.8-4.8); Lymphocytes % 17.8 %; Mean Corpuscular HGB Conc 31.8 g/dL (30.0-36.0); Mean Corpuscular Hemoglobin 28.5 pg (28.0-34.0); Mean Corpuscular Volume 89.6 fL (80-94); Mean Platelet Volume 10.8 fL (7.4-10.4); Monocytes # 0.5 10^3/uL (0.2-0.9); Monocytes % 9.7 %; Nucleated Red Blood Cells % 0 %; Platelet Count 159 10^3/cmm (130-400); Red Blood Count 3.86 10^6/uL (4.1-5.3); Red Cell Distribution Width 17.2 % (12.1-15.1); White Blood Count 4.7 10^3/uL (4.0-10.0)
[2020-10-28 10:01] LABS: Alanine Aminotransferase 7 U/L (0-41); Albumin Level 2.8 g/dL (3.5-5.2); Alkaline Phosphatase 213 IU/L (40-130); Anion Gap 12.3 (5-19); Aspartate Amino Transferase 18 U/L (0-40); Blood Urea Nitrogen 10 mg/dL (8-23); Calcium 7.6 mg/dL (8.5-10.5); Carbon Dioxide 26 mmol/L (22-29); Chloride 96 mmol/L (98-107); Glomerular Filtration Rate 113.5 mL/min (90-130); Glucose 85 mg/dL (65-115); Osmolality Calculated 270 mOsm/kg (285-295); Potassium 3.3 mmol/L (3.5-5.1); Sodium 131 mmol/L (136-145); Total Bilirubin 0.5 mg/dL (0.15-1.2); Total Protein 5.8 g/dL (6.6-8.7)
[2020-11-01 09:11] LABS: Basophils % 0.9 %; Eosinophils # 0.1 10^3/uL (0.0-0.8); Eosinophils % 1.7 %; Hematocrit 37.7 % (42.0-52.0); Hemoglobin 12.3 g/dL (11.7-16.6); Lymphocytes # 0.9 10^3/uL (0.8-4.8); Lymphocytes % 18.6 %; Mean Corpuscular HGB Conc 32.6 g/dL (30.0-36.0); Mean Corpuscular Hemoglobin 29.2 pg (28.0-34.0); Mean Corpuscular Volume 89.5 fL (80-94); Monocytes # 0.7 10^3/uL (0.2-0.9); Monocytes % 15.1 %; Neutrophils # 2.93 10^3/uL (1.8-7.7); Neutrophils % 63.3 %; Nucleated Red Blood Cells % 0 %; Platelet Count 195 10^3/cmm (130-400); Red Blood Count 4.21 10^6/uL (4.1-5.3); White Blood Count 4.6 10^3/uL (4.0-10.0)
[2020-11-01] MEDS: sodium chloride 0.9% 1,000 ML 999 ML IV (09:35)
[2020-11-01] MEDS: famotidine 20 mg/2 mL INJ IVP (09:35)
[2020-11-01 09:36] LABS: Alanine Aminotransferase < 5 U/L (0-41); Albumin Level 2.8 g/dL (3.5-5.2); Alkaline Phosphatase 221 IU/L (40-130); Anion Gap 11.5 (5-19); Aspartate Amino Transferase 15 U/L (0-40); Blood Urea Nitrogen 8 mg/dL (8-23); Calcium 7.9 mg/dL (8.5-10.5); Carbon Dioxide 26 mmol/L (22-29); Chloride 97 mmol/L (98-107); Globulin 3.2 g/dL (1.3-4.6); Glomerular Filtration Rate 113.5 mL/min (90-130); Glucose 114 mg/dL (65-115); Osmolality Calculated 271 mOsm/kg (285-295); Potassium 3.5 mmol/L (3.5-5.1); Sodium 131 mmol/L (136-145); Total Bilirubin 0.6 mg/dL (0.15-1.2)
[2020-11-01] MEDS: ondansetron 2 mg/ML SDV 2 mL 8 MG IVP (09:37)
[2020-11-01] MEDS: fluconazole premix 200 MG/100 ML PREMIX 100 MG IV (11:30)
[2020-11-01] MEDS: acyclovir 700 MG in sodium chloride 0.9% (100 ml) 100 ML 120 MG IV (12:35)
--- NOTE | 2020-11-06 20:46 | ONC FU_ITS ---
[facility] Patient Note Patient: Ezequiel Rogers Unit #: [id number]: [id number] Dictated By: Baylee ZamoraDate of Visit: Oct 18, 2020 Onc MED Follow-Up/Prog Note Chief Complaint: Colon cancer. History of Present Illness: Mr Rogers is a 64-year-old man with invasive moderately differentiated adenocarcinoma of the colon, stage IVC with CT evidence of metastatic involvement liver and ascites. In August 2020 he presented to his primary care provider with abdominal pain and swelling. Abdominal ultrasound on 09/01/2020 showed hepatomegaly with large echogenic and heterogeneous hepatic lesions, splenomegaly, and mild to moderate abdominal ascites. Further evaluation with CT abdomen/pelvis on 09/05/2020 showed several subcentimeter nodules in the visualized lower lung zones. An 11 x 16 cm calcifying contrast-enhancing mass was seen in the right lobe of the liver. There were additional contrast-enhancing lesions in the right and left lobes of the liver. There was mild splenomegaly. There was a large amount of abdominal ascites. There was wall thickening and irregularity of the cecum and right colon suspicious for underlying colon malignancy. On 09/07/2020 he was seen in the emergency room with increased abdominal swelling. He underwent paracentesis. The peritoneal fluid cytology was negative. He was seen by Dr. Her and he underwent colonoscopy on 09/12/2020. It showed a circumferential malignant appearing and near obstructing mass in the colon at 40 cm. The preliminary indication from the biopsy is moderately differentiated invasive adenocarcinoma. Additional studies are pending. He was seen by Dr Broderick on September 13, 2020 for further management of the colon cancer. He had had a significant decline in his activity tolerance, but he was still able to do light work. His ECOG score was 1. He had an appetite, but he had early satiety. He says his weight has dropped 80 lbs over the past year. Dr. Broderick had recommended a trial of typical palliative FOLFOX chemotherapy. It was discussed that a growth inhibitor including bevacizumab or possibly Panitumumab could be added to the chemotherapy regimen later. He had been advised to undergo Port-A-Cath venous access device placement if he proceeded with chemotherapy. He did have staging CT of the chest on 09/30/2020. There was a large right upper lobe mass measuring 5.5 x 8.0 cm which had the appearance of primary cancer. The lower lobes demonstrate several small nodules which are probably metastatic lesions. There was no pericardial effusion. The upper abdomen demonstrated large masses occupying the right and left lobes of the liver. On the right there is abundant calcification which is 10.4 cm lesion. There is a small amount of calcification in the left lobe lesion which was 8.2 cm. There is a large amount of ascites throughout the abdomen. No bony metastatic lesions were seen. His [facility] report from the specimen collected on September 12, 2020 reported K-michoacano mutation not detected, NRAS mutation not detected, BRAF mutation not detected, HER-2/ricco negative/0. The MSI was stable the mismatch repair status was proficient. NTRK 1/2/3 fusion not detected. The tumor mutational burden was low @ 7. PIK3 CA variants of unknown significance exon 21; PTEN +24/100%. PD-L1 was negative at 0%, APC pathogenic variant Exon [id number]; T p53 pathogenic variant exon 5 p.R1/5H. Mr. Rogers had placement of a PowerPort in the left subclavian vein on September 28, [address] Mcnamara. Mr. Rogers began his first cycle of FOLFOX on October 11, 2020. He is here today for follow-up and day 8 of cycle 1. Overall he states he is doing good. Dr. Broderick had increased his trazodone to help him sleep he states that is not working. He is having some rib pain off and on.. He states he has had some hydrocodone he is used for pain in the past and this works well for him. He is requesting a refill today. He states that overall he is doing pretty good. He did have slight cold-induced neuropathy but states that is already resolved. He states it was not anything significant at that time. He denies any nausea or vomiting. He has had no fever or chills. He denies mouth sores, sore throat or difficulty swallowing. He states his main complaint is that he just not sleeping well. He states that he feels that the hydrocodone will help with him a lot. He states he just feels kind of restless due to pain. His ECOG is 1. Past Medical History: Asthma Erectile dysfunction History of cluster headaches Hyperlipidemia Hypertension Past Surgical History: Right shoulder joint replacement Left subclavian PowerPort???Dr. Mcnamara in 2020 Colonoscopy in 2020 Covid vaccine #2 in 2020 Covid vaccine #1 in 2020 Allergies: No Known Allergies. Medications: Albuterol Sulfate 2 Puff(s) (of 108 (90 base) mcg/act) Aerosol Powder, Breath Activated Inhalation four times a day Aldactone 1 (25 mg) Tablet Oral daily Atorvastatin Calcium 1 (20 mg) Tablet Oral daily HYDROcodone-Acetaminophen 1 Tablet (of 5-325 mg) Oral q 4 to 6 hours PRN LORazepam 1 Tablet (of 1 mg) Oral t.i.d. PRN Prochlorperazine Maleate 1 Tablet (of 10 mg) Oral daily PRN traZODone HCl (50 mg) Tablet Oral at bedtime Verapamil HCl ER 1 (180 mg) Capsule SR 24 HR Oral daily Family History: Mr. Rogers's mother at age 76: coronary artery disease. Mr. Rogers's father at age 74. Mr. Rogers has 2 brothers: 2 . He has 1 sister who is : coronary artery disease, and myocardial infarction. Father age 74, reportedly due to complications of agent orange exposure. His mother, 2 brothers, and a sister all with heart disease. Social History: Mr. Rogers is and he is retired. He is a daily smoker who has smoked 0.5 packs/day for 30 years. He has no history of drinking. He has indicated exposure to the following products: cigars. He has a history of smoking for 30 years, the range of 1/2-3/4 pack of cigarettes daily. He does not drink alcohol. Review Of Symptoms: <See Above> Vital Signs: Performed on Oct 18, 2020 14:09 Height - 67.00 in Weight - 162.6 lbs (HIGH) BSA - 1.85 sq.m BMI - 25.47 Temperature - 97.4 F (LOW) Pulse - 76 /min Respiration - 18 /min BP - 129/80 mm(hg) O2 Sat - 96 % Pain - 5 Fatigue - 0,1 - No physically strenuous activity, but ambulatory and able to carry out light or sedentary work (e.g. office work, light house work). (ECOG) Physical Examination: Constitutional Alert, oriented, no acute distress. Skin pink, warm and dry. Head Normocephalic; atraumatic. Eyes Conjunctivae and sclerae are clear and without icterus. Pupils are reactive and equal. Neck Supple without masses or thyromegaly. No jugular venous distension. Hematologic/Lymphatic No petechiae or purpura. No tender or palpable lymph nodes in the cervical or supraclavicular areas. Cardiovascular Regular rate and rhythm of heart without murmurs,clicks, gallops or rubs. Chest Left chest wall has healed well from venous access device placement. Back/Spine Non-tender to palpation. Extremities No visible deformities, no cyanosis, clubbing or edema. Musculoskeletal No tenderness or swelling, normal range of motion without obvious weakness. Integumentary No rashes or lesions. Neurologic No sensory or motor deficits, normal cerebellar function, normal gait. Psychiatric Alert and oriented times three. Coherent speech. Verbalizes understanding of our discussions today. Impression: 1. Invasive moderately differentiated adenocarcinoma of the colon, stage IVC with CT evidence of metastatic involvement in the liver and ascites. 2. Hypertension. 3. Hyperlipidemia. 4. Asthma. 5. Erectile dysfunction. 6. History of cluster headaches. Plan/Problems Addressed at this Visit: 1. Patient with invasive moderately differentiated adenocarcinoma of the colon, stage IVC with CT evidence of metastatic involvement in the liver and ascites. The CT also showed small pulmonary nodules which could be metastatic. The CT findings and images reviewed with the patient, and we discussed the colonoscopy findings and pathology results. He is aware that he has a primary tumor in the colon and that it has metastasized to the liver. He is well aware that his disease is incurable. After review of his CT of the chest and his next generation sequencing as noted above, Mr. Rogers has opted for a trial of FOLFOX and will plan to add Avastin with cycle 2. He began his first cycle on October 11, 2020. A. Proceed with cycle 1 day 8 plan of care. He remains on break this week. B. Labs from today reviewed in detail discussed with Mr. Rogers and a copy was given to him. WBC 7.0, hemoglobin 11.7, platelets 276,000, ANC is 5110. Potassium 3.6 random glucose 95 creatinine 0.7 and his LFTs are normal alk phos is 302 which was 276 on October 11, 2020. 2. He is having insomnia. He had no benefit previously with Ambien or trazodone 50 mg at bedtime. A. He does not want to pursue the trazodone. He states he just really did not like the way it made him feel in general and it did help his insomnia anyway. B. He states he would like to refill his hydrocodone to see if that will help him sleep. He states it is worked successfully in the past. He also utilizes it as needed for cluster headaches and generalized pain. 3. Port-A-Cath maintenance A. Left subclavian PowerPort placed by Dr. Mcnamara on 09/28/2020. B. He will need port flush with each access. 4. Follow-up plan A. We will plan to see him back in 1 week with CBC CMP and follow-up visit. B. He will be due for cycle 2 FOLFOX at that time. We will plan to add Avastin at that time. C. Mr. Rogers was instructed to contact us in interim should questions or problems arise. Signed By: Baylee Zamora-, [facility] Sekou Broderick MD <<Signature on File>>
[2020-11-07] MEDS: alteplase 1 mg/mL SDV 2 mL 2 MG IV (13:25)
[2020-11-07 15:19] LABS: Basophils # 0.1 10^3/uL (0.0-0.1); Eosinophils # 0.1 10^3/uL (0.0-0.8); Eosinophils % 1.2 %; Hematocrit 37.5 % (42.0-52.0); Hemoglobin 12.2 g/dL (11.7-16.6); Mean Corpuscular HGB Conc 32.5 g/dL (30.0-36.0); Mean Corpuscular Hemoglobin 29.3 pg (28.0-34.0); Mean Corpuscular Volume 89.9 fL (80-94); Mean Platelet Volume 10.5 fL (7.4-10.4); Monocytes # 0.6 10^3/uL (0.2-0.9); Monocytes % 8.7 %; Neutrophils # 5.44 10^3/uL (1.8-7.7); Neutrophils % 74.7 %; Nucleated Red Blood Cells % 0 %; Platelet Count 150 10^3/cmm (130-400); Red Blood Count 4.17 10^6/uL (4.1-5.3); Red Cell Distribution Width 18.4 % (12.1-15.1); White Blood Count 7.3 10^3/uL (4.0-10.0)
[2020-11-07 16:01] LABS: Alanine Aminotransferase < 5 U/L (0-41); Albumin Level 2.6 g/dL (3.5-5.2); Alkaline Phosphatase 240 IU/L (40-130); Anion Gap 13.6 (5-19); Aspartate Amino Transferase 18 U/L (0-40); Blood Urea Nitrogen 8 mg/dL (8-23); Calcium 8.4 mg/dL (8.5-10.5); Carbon Dioxide 25 mmol/L (22-29); Chloride 95 mmol/L (98-107); Globulin 3.3 g/dL (1.3-4.6); Glomerular Filtration Rate 97.3 mL/min (90-130); Glucose 87 mg/dL (65-115); Osmolality Calculated 268 mOsm/kg (285-295); Potassium 3.6 mmol/L (3.5-5.1); Sodium 130 mmol/L (136-145); Total Bilirubin 0.7 mg/dL (0.15-1.2); Total Protein 5.9 g/dL (6.6-8.7)
[2020-11-08] MEDS: dextrose 5% 250 ML 75 ML IV (08:47)
[2020-11-08] MEDS: palonosetron 0.25 mg/5 mL SDV IV (08:47)
--- NOTE | 2020-11-10 07:54 | ONC FU_ITS ---
Dr. Broderick Patient Follow-Up Note Patient: Ezequiel Rogers Unit #: [id number]: 1955 Dicatated By: Sekou Broderick M.D.Date of Visit:Nov 08, 2020 Onc Med Follow-up/Prog Note Chief Complaint: Colon cancer. History of Present Illness: This is a 64-year-old man with invasive moderately differentiated adenocarcinoma of the colon, stage IVC with CT evidence of metastatic involvement liver and ascites. In August 2020 he presented to his primary care provider with abdominal pain and swelling. Abdominal ultrasound on 09/01/2020 showed hepatomegaly with large echogenic and heterogeneous hepatic lesions, splenomegaly, and mild to moderate abdominal ascites. Further evaluation with CT abdomen/pelvis on 09/05/2020 showed several subcentimeter nodules in the visualized lower lung zones. An 11 x 16 cm calcifying contrast-enhancing mass was seen in the right lobe of the liver. There were additional contrast-enhancing lesions in the right and left lobes of the liver. There was mild splenomegaly. There was a large amount of abdominal ascites. There was wall thickening and irregularity of the cecum and right colon suspicious for underlying colon malignancy. On 09/07/2020 he was seen in the emergency room with increased abdominal swelling. He underwent paracentesis. The peritoneal fluid cytology was negative. He was seen by Dr. eHr and he underwent colonoscopy on 09/12/2020. It showed a circumferential malignant appearing and near obstructing mass in the colon at 40 cm. Biopsy showed moderately differentiated invasive adenocarcinoma. By next generation sequencing, the tumor was confirmed to be KRAS wild-type. The BRAF mutation was not detected and the tumor was negative for overexpression of HER-2/ricco. In addition, it was confirmed to to have intact expression of mismatch repair proteins. The tumor mutational burden was low. In the setting of advanced disease, he was given the option to have a trial of palliative chemotherapy, to which he ultimately did agree. His other medical illnesses include hypertension, hyperlipidemia, and asthma. He also has a history of cluster headaches. He has a history of smoking for 30 years, less than a pack of cigarettes daily. INTERIM HISTORY: On 10/11/2020 he began cycle 1 of modified FOLFOX chemotherapy with plan to add Avastin with the 2nd cycle. He initially tolerated the chemotherapy pretty well. He said he was sick for a few days afterwards, but he did not have any other acute toxicity. He had subsequently presented with sore mouth and throat, and he also had a dyne aphasia, which clinically was very suspicious for esophageal candidiasis. He required IV hydration and he was treated empirically for candidiasis. With those symptoms, his second cycle of chemotherapy was delayed. He is seen for a follow-up visit. He is feeling a little tired, but is able to do some light work at home. He continues to complain that he has no appetite, and he also reports having a bad taste. He has not had fever or night sweats. His mouth is still a little sore, but it has improved significantly. He is not having difficulty swallowing or pain with swallowing. He has some shortness of breath, which she attributes to abdominal distention. He does not complain of cough and is not been having chest pain. His nausea has been adequately managed with medication. He still has some acid reflux, depending on what he eats. His bowel function is a little slow. Bladder function remains adequate. He has some pain in his back and hips, but that is not new. He does not complain of headache or dizziness. He is having no numbness/paresthesia or other neuropathy symptoms. Medications: Albuterol Sulfate 2 Puff(s) (of 108 (90 base) mcg/act) Aerosol Powder, Breath Activated Inhalation four times a day, Aldactone 1 (25 mg) Tablet Oral daily, Atorvastatin Calcium 1 (20 mg) Tablet Oral daily, HYDROcodone-Acetaminophen 1 Tablet (of 5-325 mg) Oral q 4 to 6 hours PRN, LORazepam 1 Tablet (of 1 mg) Oral t.i.d. PRN, Prochlorperazine Maleate 1 Tablet (of 10 mg) Oral daily PRN, traZODone HCl (50 mg) Tablet Oral at bedtime, Verapamil HCl ER 1 (180 mg) Capsule SR 24 HR Oral daily Allergies: No Known Allergies. Vital Signs: Performed on Nov 08, 2020 08:16 Height - 67.00 in Weight - 168.2 lbs (LOW) BSA - 1.88 sq.m BMI - 26.34 Temperature - 98.4 F Pulse - 76 /min Respiration - 18 /min BP - 116/69 mm(hg) O2 Sat - 99 % Pain - 0 Fatigue - 4 Physical Examination: Constitutional - He appears generally weak, Eyes - Sclerae nonicteric. Conjunctivae clear, ENMT - No lesions noted in the oral cavity, Hematologic/Lymphatic - No cervical, clavicular, or axillary adenopathy, Respiratory - Lungs sound clear with diminished air movement bilaterally, Cardiovascular - Heart rhythm is regular. There is no murmur, gallop, or rub noted, Abdomen - Abdomen appears moderately distended with ascites. Liver is not overtly enlarged. Spleen is not palpable. There is no abdominal mass noted. There is no inguinal adenopathy, Extremities - Mild edema, Neurologic - No focal neurologic deficits noted. Lab/Imaging: Test performed on Nov 01, 2020 08:56 Sodium 131 mmol/L Potassium 3.5 mmol/L Chloride 97 mmol/L CO2 26 mmol/L Anion Gap 11.5 BUN 8 mg/dL Creatinine 0.7 mg/dL Cr Clearance (Est) 109.8500 mL/min eGFR 113.5 mL/min Glucose 114 mg/dL Osmolality - Calculated 271 mOsm/kg Calcium 7.9 mg/dL Protein, Total 6.0 g/dL Albumin 2.8 g/dL Globulin 3.2 g/dL Bilirubin, Total 0.6 mg/dL ALT (SGPT) < 5 U/L AST (SGOT) 15 U/L Alkaline Phosphatase 221 IU/L WBC 4.6 10 3/uL RBC 4.21 10 6/uL HGB 12.3 g/dL HCT 37.7 % MCV 89.5 fL MCH 29.2 pg MCHC 32.6 g/dL RDW 18.0 % Platelet Count 195 10 3/cmm MPV 10.0 fL Neutrophils 2.93 10 3/uL Lymphocytes 0.9 10 3/uL Monocytes 0.7 10 3/uL Eosinophils 0.1 10 3/uL Basophils 0.0 10 3/uL Neutrophil % 63.3 % Lymphocyte % 18.6 % Monocyte % 15.1 % Eosinophil % 1.7 % Basophils % 0.9 % NRBC % 0 % Test performed on Oct 25, 2020 09:00 TSH 6.99 uIU/mL Problem List: 1. Invasive moderately differentiated adenocarcinoma of the colon, stage IVC with CT evidence of metastatic involvement in the liver and ascites. By next generation sequencing his tumor was found to be KRAS wild-type and MSI stable. 2. Hypertension. 3. Hyperlipidemia. 4. Asthma. 5. Erectile dysfunction. 6. History of cluster headaches. Problems Addressed with this Encounter and Plan: 1. Patient with invasive moderately differentiated adenocarcinoma of the colon, stage IVC with CT evidence of metastatic involvement in the liver and ascites. The CT also showed small pulmonary nodules which could be metastatic. By next generation sequencing his tumor was found to be KRAS wild-type and MSI stable. On 10/11/2020 he began cycle 1 of palliative chemotherapy with modified FOLFOX with plan to add Avastin beginning with cycle 2. He tolerated the treatment without acute toxicity, but during subsequent follow-up he presented with symptoms which were highly suspicious for esophageal candidiasis. He was given IV fluid support and empiric treatment for the candidiasis. He has been showing gradual clinical improvement, but his 2nd cycle of chemotherapy has been delayed, and at this point he still has fairly marginal performance status. However, he will proceed now with cycle 2 of modified FOLFOX, now with addition of Avastin. The chemotherapy dosages will remain the same. He returns in 2 weeks. 2. He had suspected esophageal candidiasis. His symptoms are improving, and he will continue empiric treatment with fluconazole. He also is being maintained on prophylaxis with famciclovir. 3. He has persistent, symptomatic ascites and he will be scheduled to return next week for therapeutic ultrasound-guided paracentesis. Signed By: Sekou Broderick M.D. <<Signature on File>>
--- NOTE | 2020-11-13 18:42 | ONC FU_ITS ---
[facility] Patient Note Patient: Ezequiel Rogers Unit #: [id number]: 1955 Dictated By: Baylee ZamoraDate of Visit: Oct 25, 2020 Onc MED Follow-Up/Prog Note Chief Complaint: Colon cancer. History of Present Illness: Mr Rogers is a 64-year-old man with invasive moderately differentiated adenocarcinoma of the colon, stage IVC with CT evidence of metastatic involvement liver and ascites. In August 2020 he presented to his primary care provider with abdominal pain and swelling. Abdominal ultrasound on 09/01/2020 showed hepatomegaly with large echogenic and heterogeneous hepatic lesions, splenomegaly, and mild to moderate abdominal ascites. Further evaluation with CT abdomen/pelvis on 09/05/2020 showed several subcentimeter nodules in the visualized lower lung zones. An 11 x 16 cm calcifying contrast-enhancing mass was seen in the right lobe of the liver. There were additional contrast-enhancing lesions in the right and left lobes of the liver. There was mild splenomegaly. There was a large amount of abdominal ascites. There was wall thickening and irregularity of the cecum and right colon suspicious for underlying colon malignancy. On 09/07/2020 he was seen in the emergency room with increased abdominal swelling. He underwent paracentesis. The peritoneal fluid cytology was negative. He was seen by Dr. Her and he underwent colonoscopy on 09/12/2020. It showed a circumferential malignant appearing and near obstructing mass in the colon at 40 cm. The preliminary indication from the biopsy is moderately differentiated invasive adenocarcinoma. Additional studies are pending. He was seen by Dr Broderick on September 13, 2020 for further management of the colon cancer. He had had a significant decline in his activity tolerance, but he was still able to do light work. His ECOG score was 1. He had an appetite, but he had early satiety. He says his weight has dropped 80 lbs over the past year. Dr. Broderick had recommended a trial of typical palliative FOLFOX chemotherapy. It was discussed that a growth inhibitor including bevacizumab or possibly Panitumumab could be added to the chemotherapy regimen later. He had been advised to undergo Port-A-Cath venous access device placement if he proceeded with chemotherapy. He did have staging CT of the chest on 09/30/2020. There was a large right upper lobe mass measuring 5.5 x 8.0 cm which had the appearance of primary cancer. The lower lobes demonstrate several small nodules which are probably metastatic lesions. There was no pericardial effusion. The upper abdomen demonstrated large masses occupying the right and left lobes of the liver. On the right there is abundant calcification which is 10.4 cm lesion. There is a small amount of calcification in the left lobe lesion which was 8.2 cm. There is a large amount of ascites throughout the abdomen. No bony metastatic lesions were seen. His [facility] report from the specimen collected on September 12, 2020 reported K-m[place] mutation not detected, NRAS mutation not detected, BRAF mutation not detected, HER-2/ricco negative/0. The MSI was stable the mismatch repair status was proficient. NTRK 1/2/3 fusion not detected. The tumor mutational burden was low @ 7. PIK3 CA variants of unknown significance exon 21; PTEN +24/100%. PD-L1 was negative at 0%, APC pathogenic variant Exon [id number]; T p53 pathogenic variant exon 5 p.R1/5H. Mr. Rogers had placement of a PowerPort in the left subclavian vein on September 28, [address] Mcnamara. Mr. Rogers began his first cycle of FOLFOX on October 11, 2020. He is here today for follow-up and day 1 of cycle 2. Overall he states he is doing pretty good . Dr. Broderick had increased his trazodone to help him sleep he states that is not working. He stopped the trazodone and is using hydrocodone to help him sleep. Occasionally the lorazepam helps him sleep as well to. He states he is having trouble eating as he has a bad taste due to the chemotherapy. He is a retired commis chef and food just does not taste right to him. He states he has had some mouth irritation and some intermittent sores but they seem to be healing at present. However his mouth is pretty tender and he has significant taste changes. He states is hard to swallow water at times. He is not currently tried anything for the mucositis symptoms. His weight is 161.8 today compared to 162.6 last week. He states he is try to use nutritional supplements and that's not going super well either but he is at least try to maintain his weight some. He is still having some rib pain off and on.. He states he has had some hydrocodone he is used for pain in the past and this works well for him. He did have slight cold-induced neuropathy with cycle 1 but that resolved by day eight. He has had no recurrence at this time. He denies any nausea or vomiting. He has had no fever or chills. He denies any diarrhea or constipation. He states the hydrocodone is helping him sleep better overall. He still is only sleeping about 5 hours a night. His ECOG is 1. Past Medical History: Asthma Erectile dysfunction History of cluster headaches Hyperlipidemia Hypertension Past Surgical History: Right shoulder joint replacement Left subclavian PowerPort???Dr. Mcnamara in 2020 Colonoscopy in 2020 Covid vaccine #2 in 2020 Covid vaccine #1 in 2020 Allergies: No Known Allergies. Medications: Albuterol Sulfate 2 Puff(s) (of 108 (90 base) mcg/act) Aerosol Powder, Breath Activated Inhalation four times a day Aldactone 1 (25 mg) Tablet Oral daily Atorvastatin Calcium 1 (20 mg) Tablet Oral daily HYDROcodone-Acetaminophen 1 Tablet (of 5-325 mg) Oral q 4 to 6 hours PRN LORazepam 1 Tablet (of 1 mg) Oral t.i.d. PRN Prochlorperazine Maleate 1 Tablet (of 10 mg) Oral daily PRN traZODone HCl (50 mg) Tablet Oral at bedtime Verapamil HCl ER 1 (180 mg) Capsule SR 24 HR Oral daily Family History: Mr. Rogers's mother at age 76: coronary artery disease. Mr. Rogers's father at age 74. Mr. Rogers has 2 brothers: 2 . He has 1 sister who is : coronary artery disease, and myocardial infarction. Father age 74, reportedly due to complications of agent orange exposure. His mother, 2 brothers, and a sister all with heart disease. Social History: Mr. Rogers is and he is retired. He is a daily smoker who has smoked 0.5 packs/day for 30 years. He has no history of drinking. He has indicated exposure to the following products: cigars. He has a history of smoking for 30 years, the range of 1/2-3/4 pack of cigarettes daily. He does not drink alcohol. Review Of Symptoms: <See Above> Vital Signs: Performed on Oct 25, 2020 10:33 Height - 67.00 in Weight - 161.8 lbs (LOW) BSA - 1.85 sq.m BMI - 25.34 Temperature - 96.7 F (LOW) Pulse - 82 /min Respiration - 18 /min BP - 120/75 mm(hg) O2 Sat - 98 % Pain - 3,1 - No physically strenuous activity, but ambulatory and able to carry out light or sedentary work (e.g. office work, light house work). (ECOG) Physical Examination: Constitutional Alert, oriented, no acute distress. Skin pink, warm and dry. Head Normocephalic; atraumatic. Eyes Conjunctivae and sclerae are clear and without icterus. Pupils are reactive and equal. ENMT Bright red beefy appearance of tongue and tonsillar area with scattered white patchy areas on throat and palate as well as his tongue. Neck Supple without masses or thyromegaly. No jugular venous distension. Hematologic/Lymphatic No petechiae or purpura. No tender or palpable lymph nodes in the cervical or supraclavicular areas. Cardiovascular Regular rate and rhythm of heart without murmurs,clicks, gallops or rubs. Back/Spine Non-tender to palpation. Extremities No visible deformities, no cyanosis, clubbing or edema. Musculoskeletal No tenderness or swelling, normal range of motion without obvious weakness. Integumentary No rashes or lesions. Neurologic No sensory or motor deficits, normal cerebellar function, normal gait. Psychiatric Alert and oriented times three. Coherent speech. Verbalizes understanding of our discussions today. Impression: 1. Invasive moderately differentiated adenocarcinoma of the colon, stage IVC with CT evidence of metastatic involvement in the liver and ascites. 2. Hypertension. 3. Hyperlipidemia. 4. Asthma. 5. Erectile dysfunction. 6. History of cluster headaches. Plan/Problems Addressed at this Visit: 1. Patient with invasive moderately differentiated adenocarcinoma of the colon, stage IVC with CT evidence of metastatic involvement in the liver and ascites. The CT also showed small pulmonary nodules which could be metastatic. The CT findings and images reviewed with the patient, and we discussed the colonoscopy findings and pathology results. He is aware that he has a primary tumor in the colon and that it has metastasized to the liver. He is well aware that his disease is incurable. After review of his CT of the chest and his next generation sequencing as noted above, Mr. Rogers has opted for a trial of FOLFOX and will plan to add Avastin with cycle 2. He began his first cycle on October 11, 2020. A. Hold cycle 2 day 1 plan of care due to mucositis. Plan to treat next week if mucositis improved. Avastin will be added to his cycle two treatment and the plan will be to continue that on into the future unless he has some reaction or side effect. He will need baseline UA. B. Labs from today reviewed in detail discussed with Mr. Rogers and a copy was given to him. WBC 7.4, hemoglobin 11.6 platelets 165,000, ANC is 5850. Potassium 3.4 random glucose 106 creatinine 0.8 calcium 8.3 albumin 3.1 LFTs are normal and alk phos is 241, which was 302 on October 18, 2020. I did request a magnesium for leg cramps and hypokalemia and high risk drug monitoring due to the oxaliplatin. C. He is having moderate mucosisits and taste changes related to the chemotherapy. He is a high risk due to his poor nutritional intake and his current regimen. We did discuss at length utilizing baking soda salt water. We can use Magic mouthwash and add Nystatin if indicated. He is also encouraged to utilize hard sugar-free candy to stimulate saliva. He is encouraged to drink lots of fluid if possible however this is hard given that he cannot do cold products due to the oxaliplatin. We discussed good oral care and utilization of plastic silverware instead of normal silverware as ideas he can try to improve his taste. 2. He is having insomnia. He had no benefit previously with Ambien or trazodone 50 mg at bedtime. A. He does not want to pursue the trazodone. He states he just really did not like the way it made him feel in general and it did NOT help his insomnia anyway. B. He statesl his hydrocodone works successfully. He also utilizes it as needed for cluster headaches and generalized pain. 3. Port-A-Cath maintenance A. Left subclavian PowerPort placed by Dr. Mcnamara on 09/28/2020. B. He will need port flush with each access. 4. Follow-up plan A. We will plan to see him back in 1 week with CBC CMP, UA and follow-up visit. B. He will be due for cycle 2 FOLFOX/Avastin at that time. C. Mr. Rogers was instructed to contact us in interim should questions or problems arise. Total time spent with Mr. Rogers in guarded of his plan of care today to include record review prior to his visit. Review of his current plan of care, lab results, side effect of medication and management as well as plan of care adjustments/education on the Avastin and post visit documentation was 50 minutes. Signed By: Baylee Zamora-, CNP Sekou Broderick MD <<Signature on File>>
--- NOTE | 2020-11-15 01:47 | ONC FU_ITS ---
[facility] Patient Note Patient: Ezequiel Rogers Unit #: [id number]: 1955 Dictated By: Baylee ZamoraDate of Visit: Nov 01, 2020 Onc MED Follow-Up/Prog Note Chief Complaint: Colon cancer. History of Present Illness: Mr Rogers is a 64-year-old man with invasive moderately differentiated adenocarcinoma of the colon, stage IVC with CT evidence of metastatic involvement liver and ascites. In August 2020 he presented to his primary care provider with abdominal pain and swelling. Abdominal ultrasound on 09/01/2020 showed hepatomegaly with large echogenic and heterogeneous hepatic lesions, splenomegaly, and mild to moderate abdominal ascites. Further evaluation with CT abdomen/pelvis on 09/05/2020 showed several subcentimeter nodules in the visualized lower lung zones. An 11 x 16 cm calcifying contrast-enhancing mass was seen in the right lobe of the liver. There were additional contrast-enhancing lesions in the right and left lobes of the liver. There was mild splenomegaly. There was a large amount of abdominal ascites. There was wall thickening and irregularity of the cecum and right colon suspicious for underlying colon malignancy. On 09/07/2020 he was seen in the emergency room with increased abdominal swelling. He underwent paracentesis. The peritoneal fluid cytology was negative. He was seen by Dr. Her and he underwent colonoscopy on 09/12/2020. It showed a circumferential malignant appearing and near obstructing mass in the colon at 40 cm. The preliminary indication from the biopsy is moderately differentiated invasive adenocarcinoma. Additional studies are pending. He was seen by Dr Broderick on September 13, 2020 for further management of the colon cancer. He had had a significant decline in his activity tolerance, but he was still able to do light work. His ECOG score was 1. He had an appetite, but he had early satiety. He says his weight has dropped 80 lbs over the past year. Dr. Broderick had recommended a trial of typical palliative FOLFOX chemotherapy. It was discussed that a growth inhibitor including bevacizumab or possibly Panitumumab could be added to the chemotherapy regimen later. He had been advised to undergo Port-A-Cath venous access device placement if he proceeded with chemotherapy. He did have staging CT of the chest on 09/30/2020. There was a large right upper lobe mass measuring 5.5 x 8.0 cm which had the appearance of primary cancer. The lower lobes demonstrate several small nodules which are probably metastatic lesions. There was no pericardial effusion. The upper abdomen demonstrated large masses occupying the right and left lobes of the liver. On the right there is abundant calcification which is 10.4 cm lesion. There is a small amount of calcification in the left lobe lesion which was 8.2 cm. There is a large amount of ascites throughout the abdomen. No bony metastatic lesions were seen. His [facility] report from the specimen collected on September 12, 2020 reported K-m[place] mutation not detected, NRAS mutation not detected, BRAF mutation not detected, HER-2/ricco negative/0. The MSI was stable the mismatch repair status was proficient. NTRK 1/2/3 fusion not detected. The tumor mutational burden was low @ 7. PIK3 CA variants of unknown significance exon 21; PTEN +24/100%. PD-L1 was negative at 0%, APC pathogenic variant Exon 16/p.[id number]; T p53 pathogenic variant exon 5 p.R1/5H. Mr. Rogers had placement of a PowerPort in the left subclavian vein on September 28, [address] Mcnamara. Mr. Rogers began his first cycle of FOLFOX on October 11, 2020. He is here today for follow-up and day 1 of cycle 2. He was supposed to start cycle 2-day 1 FOLFOX with additional Avastin last week but had mucositis and his treatment was held. He states his mouth is no better he thinks it is actually little bit worse. He states is just tender and hard to eat. He has no taste. He continues to have some intermittent nausea. He states that when he takes his antinausea medicine that works pretty good. He denies any fever or chills. He has had no sore throat just irritation in his mouth. He denies any diarrhea or constipation. He states he has had some abdominal swelling but did not want to check for paracentesis as he does not think it is quite big enough yet . He is had more fatigue over the last week. He has had slight decrease in his performance status. He denies any residual neuropathy or cold-induced neuropathy at this time. His ECOG is 2. Past Medical History: Asthma Erectile dysfunction History of cluster headaches Hyperlipidemia Hypertension Past Surgical History: Right shoulder joint replacement Left subclavian PowerPort???Dr. Mcnamara in 2020 Colonoscopy in 2020 Covid vaccine #2 in 2020 Covid vaccine #1 in 2020 Allergies: No Known Allergies. Medications: Albuterol Sulfate 2 Puff(s) (of 108 (90 base) mcg/act) Aerosol Powder, Breath Activated Inhalation four times a day Aldactone 1 (25 mg) Tablet Oral daily Atorvastatin Calcium 1 (20 mg) Tablet Oral daily HYDROcodone-Acetaminophen 1 Tablet (of 5-325 mg) Oral q 4 to 6 hours PRN LORazepam 1 Tablet (of 1 mg) Oral t.i.d. PRN Prochlorperazine Maleate 1 Tablet (of 10 mg) Oral daily PRN traZODone HCl (50 mg) Tablet Oral at bedtime Verapamil HCl ER 1 (180 mg) Capsule SR 24 HR Oral daily Family History: Mr. Rogers's mother at age 76: coronary artery disease. Mr. Rogers's father at age 74. Mr. Rogers has 2 brothers: 2 . He has 1 sister who is : coronary artery disease, and myocardial infarction. Father age 74, reportedly due to complications of agent orange exposure. His mother, 2 brothers, and a sister all with heart disease. Social History: Mr. Rogers is and he is retired. He is a daily smoker who has smoked 0.5 packs/day for 30 years. He has no history of drinking. He has indicated exposure to the following products: cigars. He has a history of smoking for 30 years, the range of 1/2-3/4 pack of cigarettes daily. He does not drink alcohol. Review Of Symptoms: <See Above> Vital Signs: Performed on Nov 01, 2020 10:44 Height - 67.00 in Weight - 168.6 lbs (HIGH) BSA - 1.88 sq.m BMI - 26.41 Temperature - 98.6 F Pulse - 82 /min Respiration - 20 /min BP - 110/70 mm(hg) O2 Sat - 97 % Pain - 4 Fatigue - 3,2 - Ambulatory/capable of all self-care, unable to perform any work activities. Up and about more than 50% of waking hours. (ECOG) Physical Examination: Constitutional Alert, oriented, no acute distress. Skin pink, warm and dry. Head Normocephalic; atraumatic. Eyes Conjunctivae and sclerae are clear and without icterus. Pupils are reactive and equal. ENMT Bright red beefy appearance of tongue and tonsillar area with scattered white patchy areas on throat and palate as well as his tongue. Hematologic/Lymphatic No petechiae or purpura. No tender or palpable lymph nodes in the cervical or supraclavicular areas. Cardiovascular Regular rate and rhythm of heart without murmurs,clicks, gallops or rubs. Chest Left chest wall has healed well from venous access device placement. Back/Spine Non-tender to palpation. Extremities No visible deformities, no cyanosis, clubbing or edema. Musculoskeletal No tenderness or swelling, normal range of motion without obvious weakness. Integumentary No rashes or lesions. Neurologic No sensory or motor deficits, normal cerebellar function, normal gait. Psychiatric Alert and oriented times three. Coherent speech. Verbalizes understanding of our discussions today. Laboratory:Test performed on Nov 01, 2020 08:56 Sodium 131 mmol/L Potassium 3.5 mmol/L Chloride 97 mmol/L CO2 26 mmol/L Anion Gap 11.5 BUN 8 mg/dL Creatinine 0.7 mg/dL Cr Clearance (Est) 109.8500 mL/min eGFR 113.5 mL/min Glucose 114 mg/dL Osmolality - Calculated 271 mOsm/kg Calcium 7.9 mg/dL Protein, Total 6.0 g/dL Albumin 2.8 g/dL Globulin 3.2 g/dL Bilirubin, Total 0.6 mg/dL ALT (SGPT) < 5 U/L AST (SGOT) 15 U/L Alkaline Phosphatase 221 IU/L WBC 4.6 10 3/uL RBC 4.21 10 6/uL HGB 12.3 g/dL HCT 37.7 % MCV 89.5 fL MCH 29.2 pg MCHC 32.6 g/dL RDW 18.0 % Platelet Count 195 10 3/cmm MPV 10.0 fL Neutrophils 2.93 10 3/uL Lymphocytes 0.9 10 3/uL Monocytes 0.7 10 3/uL Eosinophils 0.1 10 3/uL Basophils 0.0 10 3/uL Neutrophil % 63.3 % Lymphocyte % 18.6 % Monocyte % 15.1 % Eosinophil % 1.7 % Basophils % 0.9 % NRBC % 0 % Test performed on Oct 25, 2020 09:00 TSH 6.99 uIU/mL Impression: 1. Invasive moderately differentiated adenocarcinoma of the colon, stage IVC with CT evidence of metastatic involvement in the liver and ascites. 2. Hypertension. 3. Hyperlipidemia. 4. Asthma. 5. Erectile dysfunction. 6. History of cluster headaches. Plan/Problems Addressed at this Visit: 1. Patient with invasive moderately differentiated adenocarcinoma of the colon, stage IVC with CT evidence of metastatic involvement in the liver and ascites. The CT also showed small pulmonary nodules which could be metastatic. The CT findings and images reviewed with the patient, and we discussed the colonoscopy findings and pathology results. He is aware that he has a primary tumor in the colon and that it has metastasized to the liver. He is well aware that his disease is incurable. After review of his CT of the chest and his next generation sequencing as noted above, Mr. Rogers has opted for a trial of FOLFOX and will plan to add Avastin with cycle 2. He began his first cycle on October 11, 2020. A. His cycle 2 has been held due to mucositis and will be held once again today as his mucositis actually seems to be worse. B. He will have supportive care with IV hydration, acyclovir and fluconazole. He will then begin on oral treatment for leukocytosis. C. Labs from today reviewed in detail discussed with Mr. Rogers and a copy was given to him. WBC 4.6, hemoglobin 12.3, platelets 1 95,000, ANC is 2930. Potassium 3.5 creatinine 0.7 random glucose 114 and LFTs are normal his alk phos is 221. D. He is having taste changes related to the chemotherapy. There is no evidence of significant mucositis at this time. However he is a high risk due to his poor nutritional intake and his current regimen. We did discuss at length utilizing baking soda salt water. We can use Magic mouthwash if needed. He is also encouraged to utilize hard sugar-free candy to stimulate saliva. He is encouraged to drink lots of fluid if possible however this is hard given that he cannot do cold products due to the oxaliplatin. We discussed good oral care and utilization of plastic silverware instead of plain normal silverware as ideas he can try to improve his taste. 2. Caris final report from specimen collected on 09/12/2020 with the primary tumor site: Colon: Not otherwise specified. A. KRAS mutation not detected B. NRAS mutation not detected C. BRAF mutation not detected D. ERBB2 negative E. MSI is stable mismatch repair status is proficient F. NTRK 1 2 and 3 fusion not detected G. tumor mutational burden is low. H. PIK3CA variants of unknown significance exon 21 P. [id number] I. PTEN positive 24, 100%. J. PD-L1 (SP1 42) negative K. APC pathogenic variant exon 16 p. [id number] L. T p53 pathogenic variant exon 5 p.R1/5H 3. He is having insomnia. He had no benefit previously with Ambien or trazodone 50 mg at bedtime. A. He does not want to pursue the trazodone. He states he just really did not like the way it made him feel in general and it did NOT help his insomnia anyway. B. He statesl his hydrocodone works successfully. He also utilizes it as needed for cluster headaches and generalized pain. 4. Port-A-Cath maintenance A. Left subclavian PowerPort placed by Dr. Mcnamara on 09/28/2020. B. He will need port flush with each access. 5. Follow-up plan A. We will plan to see him back in 1 weeks with CBC CMP and follow-up visit. He may have hydration/supportive care in the interim as needed. B. He will be due for cycle 2 FOLFOX/Avastin at that time. We may want to consider dose reduction with his chemotherapy given the significant mucositis that he has had after 1 cycle. C. Mr. Rogers was instructed to contact us in interim should questions or problems arise. Signed By: Baylee Zamora-, [facility] Sekou Broderick MD <<Signature on File>>
== END 2020-11-09 23:59 | disposition home or self-care (01) ==
LOC: ONCMED 05:47
PROVIDERS: Nurse Practitioner; PCP Nurse Practitioner Family; Visit Provider Internal Medicine Medical Oncology
DX: Z51.11 Encounter for antineoplastic chemotherapy (principal); C18.9 Malignant neoplasm of colon, unspecified; C78.7 Secondary malignant neoplasm of liver and intrahepatic bile duct; R18.0 Malignant ascites; I10 Essential (primary) hypertension; E78.5 Hyperlipidemia, unspecified; J45.909 Unspecified asthma, uncomplicated; N52.9 Male erectile dysfunction, unspecified; G44.009 Cluster headache syndrome, unspecified, not intractable; Z79.899 Other long term (current) drug therapy
CPT/HCPCS: 36415; 80053; 84443; 85025; 96360; 96361; 96365; 96367; 96368; 96374; 96375; 96413; 96415; 96416; 96417; 96523; 99214; 99215; J0133; J0640; J1100; J1450; J2405; J2469; J2997; J3490; J7030; J9035; J9190; J9263

== ENCOUNTER 2020-11-10 06:13 | Outpatient (RCR) | payer MEDICAID, SELFPAY | END 2020-11-18 10:00 | disposition home or self-care (01) | LOC: ONCMED 06:13 | PROVIDERS: PCP Nurse Practitioner Family; Visit Provider Internal Medicine Medical Oncology | DX: Z45.2 Encounter for adjustment and management of vascular access device (principal) | CPT/HCPCS: 96523 ==

== ENCOUNTER → 2020-11-18 10:48 | Day surgery (SDC) | payer MEDICAID, SELFPAY ==
--- NOTE | 2020-11-18 11:10 | US_ITS ---
WS: [id number] ULTRASOUND-GUIDED THERAPEUTIC PARACENTESIS Procedure, risks, and complications have been explained to the patient. Consent is obtained. Utilizing aseptic technique and 1% buffered lidocaine, a small dermatome was made through which a 5 F rench Yueh catheter was inserted. Approximately 8100 ml of clear peritoneal fluid was obtained witho ut difficulty. No complications encountered. US/US paracentesis abd [id number] IMPRESSION: Uncomplicated paracentesis yielding 8100 ml of peritoneal fluid.
[2020-11-18 11:15] VITALS: BP 127/81; PULSE 76; RESP 20; TEMP 37.1; O2SAT 100
[2020-11-18 11:36] VITALS: BMI 24.7
[2020-11-18 13:02] VITALS: BP 101/63; PULSE 73; RESP 18; O2SAT 100
== END ==
PROVIDERS: PCP Nurse Practitioner Family; Visit Provider Internal Medicine Medical Oncology
DX: R18.8 Other ascites (principal)
CPT/HCPCS: 49083